=== PATIENT | female | born 1985 | race African-American/Black ===

== ENCOUNTER 2022-09-18 07:55 | Emergency (ER) | payer OTHER, SELFPAY ==
--- NOTE | ~2022-09-18 | XR_ITS ---
EXAMINATION: XR chest 2V DATE: 09/18/2022 08:23 INDICATION: Productive cough. TECHNIQUE: Frontal and lateral views of the chest were obtained. COMPARISON: None. FINDINGS: A calcified right lung nodule and calcified right hilar lymph nodes are consistent with old granulomatous disease. No pleural effusion or pneumothorax. The heart size is normal. IMPRESSION: 1. No acute cardiopulmonary disease. Reviewed, dictated and finalized at location A.
[2022-09-18 08:02] VITALS: BP 170/91; PULSE 75; RESP 19; O2SAT 100
[2022-09-18 08:16] VITALS: BP 158/94; PULSE 74; RESP 22
[2022-09-18 08:38] VITALS: BP 155/82; PULSE 62; RESP 16; TEMP 36.4; O2SAT 100
[2022-09-18 08:40] VITALS: BP 155/82; O2SAT 100
[2022-09-18 09:03] LABS: Influenza A QL RT-PCR Negative (Negative); Influenza B QL RT-PCR Negative (Negative); RSV RNA, RT-PCR Negative (Negative); SARS-CoV-2 RNA PCR Negative
[2022-09-18] MEDS: LEVALBUTEROL NEB 1.25 MG/3 ML INHALATION (09:18)
[2022-09-18] MEDS: IPRATROPIUM BR 0.02% INH SOLN 0.5 MG/2.5 ML VIAL INHALATION (09:18)
[2022-09-18 09:20] VITALS: PULSE 78; RESP 18
--- NOTE | 2022-09-18 09:55 | ED.GENADULT ---
HPI - General Adult General Chief complaint: Upper Respiratory Infection Stated complaint: productive cough, congestion Time Seen by Provider: 09/18/22 07:59 Source: RN notes reviewed History of Present Illness HPI narrative: Patient presents emergency department from home for cough. Patient states she said the cough for approximately 3 weeks. States the cough is productive of yellow sputum states is associated with rhinorrhea. She states that she has had no measured fevers or chills she denies any ear pain denies any throat pain except for with coughing she denies abdominal pain nausea or vomiting. Patient states she does smoke cigarettes daily. She states that she has tried taking [id number] medication with minimal relief Related Data Allergies Allergy/AdvReac Type Severity Reaction Status Date / Time No Known Allergies Allergy Verified 09/18/22 08:46 Review of Systems Review of Systems: Gen.: Denies fevers or chills ENT: HPI Respiratory: Reports cough productive of yellow sputum CV: Denies chest pain or palpitations GI: Denies abdominal pain nausea, emesis or diarrhea Musculoskeletal: Denies back pain or muscle pain Neuro: Denies numbness, tingling, weakness or focal weakness Skin: Denies rash Except as documented, all other systems reviewed and negative [facility] Past Medical History Medical History (Updated 09/18/22 @ 10:00 by Dirk Uriostegui DO) Patient denies significant medical history Social History Social History (Updated 09/18/22 @ 09:56 by Dirk Uriostegui DO) Smoking status: Current every day smoker Exam Narrative: APPEARANCE: No acute distress, nontoxic, resting in bed EYES: EOMI HEENT: Normocephalic, atraumatic, TMs clear bilaterally nares patent oral mucosa moist erythema exudate posterior pharynx RESPIRATORY: No respiratory distress Clear to auscultation bilaterally with no rhonchi wheezing or rales. CARDIOVASCULAR: Regular rate and rhythm without murmurs rubs or gallops. ABDOMINAL: Soft, nontender, nondistended, no rebound or guarding MUSCULOSKELETAl: Moves all extremities. No clubbing, cyanosis or edema. NEURO: Awake and alert. Following commands, speech normal, no focal deficits SKIN:: Warm, dry. No rashes lesions or abrasions PSYCHIATRIC: Normal affect/mood, Course Course Emergency Course: Patient states breathing is improved following breathing treatment Discussed with patient results of workup and diagnosis. Discussed need for follow-up with primary care, proper use of medication, and reasons to return to the emergency department. Patient understands and agrees to current treatment plan Vital Signs Vital signs: Vital Signs Pulse Rate 75 09/18/22 08:02 Respiratory Rate 19 09/18/22 08:02 Blood Pressure 170/91 H 09/18/22 08:02 Pulse Oximetry 100 09/18/22 08:02 Temperature 97.6 F 09/18/22 08:38 Pulse Rate 78 09/18/22 09:20 Respiratory Rate 18 09/18/22 09:20 Blood Pressure 155/82 H 09/18/22 08:40 Pulse Oximetry 100 09/18/22 08:40 Oxygen Delivery Room Air 09/18/22 08:48 Medical Decision Making MDM Narrative Medical decision making narrative: Patient presents for upper respiratory infection x3 weeks notes rhinorrhea and a cough states has had no fevers or chills patient on exam does note to have mild tightness and pain she was given with good improvement. Chest x-ray shows no acute process and influenza and RSV and COVID are all negative this time will give albuterol inhaler with cough medicine with follow-up with PCP Vital Signs Vital Signs: Vital Signs Pulse Rate 75 09/18/22 08:02 Respiratory Rate 19 09/18/22 08:02 Blood Pressure 170/91 H 09/18/22 08:02 Pulse Oximetry 100 09/18/22 08:02 Temperature 97.6 F 09/18/22 08:38 Pulse Rate 78 09/18/22 09:20 Respiratory Rate 18 09/18/22 09:20 Blood Pressure 155/82 H 09/18/22 08:40 Pulse Oximetry 100 09/18/22 08:40 Oxygen Delivery Room Air 09/18/22 08:48
[2022-09-18 10:08] VITALS: BP 165/100; PULSE 57; RESP 16
== END 2022-09-18 10:11 | disposition home or self-care (01) ==
PROVIDERS: Emergency Provider Emergency Medicine
DX: J06.9 Acute upper respiratory infection, unspecified (principal); Z20.822 Contact with and (suspected) exposure to COVID-19; F17.200 Nicotine dependence, unspecified, uncomplicated
CPT/HCPCS: 71046; 87637; 94640; 99283

== ENCOUNTER 2022-09-25 23:53 | Emergency (ER) | payer OTHER, SELFPAY ==
--- NOTE | ~2022-09-25 | XR_ITS ---
Clinical Indication: Upper respiratory symptoms, pneumonia PA and lateral views of the chest: Comparison: 09/18/2022 Findings: Calcified right midlung granuloma noted. The lungs are otherwise clear, without evidence of focal consolidation or pleural effusion. Cardiomediastinal silhouette is within normal limits. Bone s and soft tissues are unremarkable. Impression: No acute abnormality. Reviewed, dictated and finalized at location . Impression: No acute abnormality.
[2022-09-26 00:17] VITALS: BP 158/87; PULSE 88; RESP 18; TEMP 36.4; O2SAT 100
--- NOTE | 2022-09-26 01:24 | ED.GENADULT ---
HPI - General Adult General Chief complaint: Upper Respiratory Infection Stated complaint: upper respiratory Time Seen by Provider: 09/26/22 01:15 History of Present Illness HPI narrative: 36-year-old female presented with persistent cough and nasal congestion. Per patient for the last 3 weeks she has been having intermittent cough, nonproductive associated with nasal congestion. She was seen in the ED several weeks before and treated symptomatically. She continues to have symptoms so presented to the ED for further evaluation. She denied chest pain, shortness of breath, headache, nausea, vomiting, abdominal pain, diarrhea, sick contacts, dysuria. Past medical history: Denied Past surgical history: Denied Medications: Denied Allergies: Denied Related Data Allergies Allergy/AdvReac Type Severity Reaction Status Date / Time No Known Allergies Allergy Verified 09/18/22 08:46 Review of Systems Review of Systems: See HPI [facility] Past Medical History Medical History Patient denies significant medical history Social History Social History (Updated 09/18/22 @ 09:56 by Dirk Uriostegui DO) Smoking status: Current every day smoker Exam Narrative: APPEARANCE: Alert, calm and cooperative, no acute distress, phonating, sitting comfortably during visit HEAD: atraumatic EYES: Pupils equal round an reactive to light, extra ocular movements intact, no conjunctival injection NOSE: Normal no drainage NECK: Supple, without meningismus RESPIRATORY: Lungs clear to auscultation bilaterally, no wheezes/rales/rhonchi, breathing comfortably CARDIOVASCULAR: Regular rate and rhythm, no visible jugular venous distension ABDOMINAL: Soft, nontender, nondistended, no guarding, no rebound/peritoneal signs, no costovertebral tenderness to palpation BACK: no midline tenderness to palpation, no step offs EXTREMITIES: No edema, palpable peripheral pulses, warm, well perfused, no tenderness to bilateral calves. NEURO: Alert, moving all extremities symmetrically, ambulating with steady gait SKIN:: Warm, dry. Normal color PSYCHIATRIC: Normal affect/mood Course Vital Signs Vital signs: Vital Signs Temperature 97.6 F 09/26/22 00:17 Pulse Rate 88 09/26/22 00:17 Respiratory Rate 18 09/26/22 00:17 Blood Pressure 158/87 H 09/26/22 00:17 Pulse Oximetry 100 09/26/22 00:17 Temperature 97.6 F 09/26/22 00:17 Pulse Rate 88 09/26/22 00:17 Respiratory Rate 18 09/26/22 00:17 Blood Pressure 158/87 H 09/26/22 00:17 Pulse Oximetry 100 09/26/22 00:17 Medical Decision Making MDM Narrative Medical decision making narrative: Medical Decision Making 36-year-old female presented with 3 weeks of nasal congestion and nonproductive cough. Denied fever chills, chest pain, shortness of breath, abdominal pain, sick contacts. Physical exam benign, sitting comfortably in bed, clear lungs, abdomen soft, vitals within normal limits. Differential diagnosis includes but not limited to: Pneumonia versus viral URI versus sinusitis. The patient tolerated oral intake, is alert and oriented, speaking with clear speech, ambulated with steady gait, and has remained hemodynamically stable throughout the ED visit. He has close follow up with primary care provider. Empric antibiotics provided to her preferred pharmacy. Areas of diagnostic uncertainty discussed and strict return precautions shared with patient; encouraged to return to the emergency department if symptoms returned or worsened. The patient is safe to be discharged with follow up, provided she abide by the verbalized and written instruction, to which the patient has express understanding. Vital Signs Vital Signs: Vital Signs Temperature 97.6 F 09/26/22 00:17 Pulse Rate 88 09/26/22 00:17 Respiratory Rate 18 09/26/22 00:17 Blood Pressure 158/87 H 09/26/22 00:17 Pulse Oximetry 100 09/26/22 00:17 Temperature 97
[2022-09-26 01:51] VITALS: BP 131/77; PULSE 89; RESP 18; TEMP 36.6; O2SAT 99
[2022-09-26 02:17] LABS: Influenza A QL RT-PCR Negative (Negative); Influenza B QL RT-PCR Negative (Negative); RSV RNA, RT-PCR Negative (Negative); SARS-CoV-2 RNA PCR Negative
== END 2022-09-26 02:49 | disposition home or self-care (01) ==
PROVIDERS: Emergency Provider Emergency Medicine
DX: J06.9 Acute upper respiratory infection, unspecified (principal); Z20.822 Contact with and (suspected) exposure to COVID-19; F17.200 Nicotine dependence, unspecified, uncomplicated
CPT/HCPCS: 71046; 87637; 99283